=== PATIENT | male | born 1995 | race Caucasian/White ===

== ENCOUNTER 2019-12-07 14:53 | Emergency (ER) | payer BC ==
[2019-12-07] MEDS ORDERED: ASPIRIN 81 MG TABLET, CHEWABLE PO ONE (15:06)
--- NOTE | 2019-12-07 15:06 | ER Document Report ---
ED Medical Screen (RME) - General Chief Complaint: Chest Pain Stated Complaint: CHEST PAIN Time Seen by Provider: 12/07/19 15:01 Mode of Arrival: Wheelchair Information source: Patient Notes: 24-year-old male presented to ED for complaint of chest pain while at work. He states he has not had any fevers. He was at work when the chest pain started suddenly. He states he has not been around anybody that has the coronavirus. States he has not had any fevers. He states he has not had any runny nose cough or congestion. He states he has pain right in the center of his chest like a pressure. He states he has a history of Crohn's disease. He states he is also very dizzy and feels like he is got a pass out. I have greeted and performed a rapid initial assessment of this patient. A comprehensive ED assessment and evaluation of the patient, analysis of test results and completion of medical decision making process will be conducted by an additional ED providers.
--- NOTE | 2019-12-07 15:42 | RADIOLOGY REPORT (SQ) ---
EXAM DESCRIPTION: CHEST 2 VIEWS COMPLETED DATE/TIME: 12/07/2019 3:26 pm REASON FOR STUDY: chest pain COMPARISON: None. EXAM PARAMETERS: NUMBER OF VIEWS: two views TECHNIQUE: Digital Frontal and Lateral radiographic views of the chest acquired. RADIATION DOSE: NA LIMITATIONS: none FINDINGS: LUNGS AND PLEURA: No opacities, masses or pneumothorax. No pleural effusion. MEDIASTINUM AND HILAR STRUCTURES: No masses or contour abnormalities. HEART AND VASCULAR STRUCTURES: Heart normal size. No evidence for failure. BONES: No acute findings. HARDWARE: None in the chest. OTHER: No other significant finding. IMPRESSION: NO ACUTE RADIOGRAPHIC FINDING IN THE CHEST. TECHNICAL DOCUMENTATION: JOB ID: [id number] 2010 [employer]- All Rights Reserved Reading location - IP/workstation name: [email or web address]
[2019-12-07 15:44] LABS: HEMOGLOBIN 16.5 g/dL (13.5-17.0); RED BLOOD COUNT 5.59 10^6/uL (4.35-5.55); WHITE BLOOD COUNT 11.9 10^3/uL (4.0-10.5)
[2019-12-07 15:45] LABS: ABSOLUTE BASOPHILS # (AUTO) 0.1 10^3/uL (0.0-0.2); ABSOLUTE EOSINOPHILS # (AUTO) 0.1 10^3/uL (0.0-0.6); ABSOLUTE LYMPHOCYTES (AUTO) 2.4 10^3/uL (0.5-4.7); ABSOLUTE MONOCYTES (AUTO) 0.9 10^3/uL (0.1-1.4); ABSOLUTE NEUT (AUTO) 8.5 10^3/uL (1.7-8.2); BASOPHILS % (AUTO) 0.7 % (0-2); EOSINOPHILS % (AUTO) 0.6 % (0-6); LYMPHOCYTES % (AUTO) 20.4 % (13-45); MEAN CORPUSCULAR HEMOGLOBIN 29.5 pg (27.0-33.4); MEAN CORPUSCULAR HGB CONC 34.4 g/dL (32.0-36.0); MEAN CORPUSCULAR VOLUME 86 fl (80-97); MONOCYTES % (AUTO) 7.3 % (3-13); PLATELET COUNT 291 10^3/uL (150-450); TOTAL CELLS COUNTED % (AUTO) 100 %
--- NOTE | 2019-12-07 15:52 | EKG REPORT ---
SEVERITY:- ABNORMAL ECG - SINUS RHYTHM PROBABLE LEFT VENTRICULAR HYPERTROPHY INFERIOR Q WAVES, PROBABLY NORMAL VARIATION : Confirmed by: Tiffanie Cruz MD 07-Dec-2019 15:52:03
[2019-12-07 16:03] LABS: ALBUMIN 4.7 g/dL (3.5-5.0); ALKALINE PHOSPHATASE 69 U/L (38-126); ANION GAP 8 (5-19); ASPARTATE AMINO TRANSFERASE 54 U/L (17-59); BILIRUBIN,TOTAL 0.6 mg/dL (0.2-1.3); BLOOD UREA NITROGEN 20 mg/dL (7-20); CALCIUM 10.2 mg/dL (8.4-10.2); CARBON DIOXIDE 28 mmol/L (22-30); CHLORIDE 103 mmol/L (98-107); GLUCOSE 118 mg/dL (75-110); POTASSIUM 3.9 mmol/L (3.6-5.0); TOTAL PROTEIN 8.1 g/dL (6.3-8.2)
--- NOTE | 2019-12-07 16:40 | ER Document Report ---
ED General - General Chief Complaint: Chest Pain Stated Complaint: CHEST PAIN Time Seen by Provider: 12/07/19 15:01 Primary Care Provider: [facility] [Primary [facility] Provider] - Follow up as needed Mode of Arrival: Wheelchair Information source: Patient TRAVEL OUTSIDE OF THE [place] IN LAST 30 DAYS: No - HPI Onset: Other - suddenly today Onset/Duration: Gradual Quality of pain: Pressure Severity: Moderate Pain Level: 2 Associated symptoms: Chest pain, Shortness of breath, Other - Diaphoresis Exacerbated by: Denies Relieved by: Denies Similar symptoms previously: No Recently seen / treated by doctor: No Notes: 24 year old male with a history of Crohns Disease on Remicade here for two episodes of chest pains. The patient was at work and he noticed chest pain, dizziness, and sweating. The patient says this lasted about 20 min and then he came to the ER. The same symptoms happened again while in the ER but they lasted a much shorter amount of time. Prior to today, the patient has never had symptoms like this before. The patient denies being under stress, recent chest trauma, recent heavy lifting, radiation of chest pain, nausea, vomiting, sick contacts, recent long plane or car rides, family history of CAD or PE/DVT. - Related Data Allergies/Adverse Reactions: No Known Allergies Allergy (Verified 12/07/19 15:39) Past Medical History - General Information source: Patient - Social History Smoking Status: Current Some Day Smoker Frequency of alcohol use: Social Drug Abuse: None Lives with: Spouse/Significant other Family History: Reviewed & Not Pertinent Patient has suicidal ideation: No Patient has homicidal ideation: No Past Surgical History: Reports: Hx Tonsillectomy Review of Systems - Review of Systems Constitutional: Diaphoresis EENT: No symptoms reported Cardiovascular: Chest pain, Dizziness Respiratory: Short of breath Gastrointestinal: No symptoms reported Genitourinary: No symptoms reported Male Genitourinary: No symptoms reported Musculoskeletal: No symptoms reported Skin: No symptoms reported Hematologic/Lymphatic: No symptoms reported Neurological/Psychological: No symptoms reported -: Yes All other systems reviewed and negative Physical Exam - Vital signs Vitals: Temp Pulse Resp BP Pulse Ox 98.6 F 61 18 141/74 H 100 12/07/19 15:28 12/07/19 15:28 12/07/19 15:28 12/07/19 15:28 12/07/19 15:28 - Notes Notes: GENERAL: Well-appearing, well-nourished and in no acute distress. HEAD: Atraumatic, normocephalic. EYES: Pupils equal round and reactive to light, extraocular movements intact, sclera anicteric, conjunctiva are normal. ENT: Nares patent, oropharynx clear without exudates. Moist mucous membranes. NECK: Normal range of motion, supple without lymphadenopathy or JVD. LUNGS: Breath sounds clear to auscultation bilaterally and equal. No wheezes rales or rhonchi. HEART: Regular rate and rhythm without murmurs, rubs or gallops. ABDOMEN: Soft, nontender, normoactive bowel sounds. No guarding, no rebound. No masses appreciated. EXTREMITIES: Normal range of motion, no pitting or edema. No clubbing or cyanosis. NEUROLOGICAL: Cranial nerves II through XII grossly intact. Normal speech, normal gait. PSYCH: Normal mood, normal affect. SKIN: Warm, Dry, normal turgor, no rashes or lesions noted. Course - Re-evaluation Re-evalutation: 12/07/19 17:15 The patient is here for 2 episodes of chest pains along with diaphoresis and shortness of breath and a sensation he may pass out. The patient khas no risk factors for PE or ACS other then that he vapes (unclear risk factor). The patient is PERC Negative making PE unlikely. The patient has an unremarkable chest xray and EKG. Plan to get 2 negative Trops since the patient's chest pain started about an hour prior to ER arrival. Assuming both Trops are completely negative, patient is safe for outpatient follow up. The patient has no known sick contacts. He was told to see his PCP for COVID19 testing if symptoms developed. - Vital Signs Vital signs: Temp Pulse Resp BP Pulse Ox 98.6 F 61 13 127/72 H 97 12/07/19 15:28 12/07/19 15:28 12/07/19 17:59 12/07/19 17:59 12/07/19 17:59 - Laboratory Result Diagrams: 12/07/19 15:29 12/07/19 15:29 Laboratory results interpreted by me: 12/07/19 12/07/19 15:29 15:29 WBC 11.9 H RBC 5.59 H Absolute Neuts (auto) 8.5 H Glucose 118 H ALT 70 H - Diagnostic Test Radiology reviewed: Image reviewed, Reports reviewed - EKG Interpretation by Me EKG shows normal: Sinus rhythm, Freedom, Intervals, QRS Complexes, ST-T Waves Rate: Normal Rhythm: NSR Discharge - Discharge Clinical Impression: Diaphoresis Chest pain Qualifiers: Chest pain type: unspecified Qualified Code(s): R07.9 - Chest pain, unspecified Condition: Stable Disposition: HOME, SELF-CARE Additional Instructions: Use Tylenol and Motrin for chest pains. Drink plenty of fluids in the days to come. Return to an ER for persistent chest pain, chest pain with trouble breathing, or if worse. Tell your doctor you were in the ER for chest pains and dizziness. Consider an outpatient front desk monitor if dizziness spells continue. You had an EKG, Chest Xray, and blood work all that was within normal limits. Seek medical attention if you develop fevers, chills, sweats, trouble breathing or if you are worse in anyway. Referrals: [facility] [Primary Care Provider] - Follow up as needed
[2019-12-07 18:03] VITALS: BP 127/72
== END 2019-12-07 19:39 | disposition home or self-care (01) ==
LOC: ER 14:53
DX: R07.9 Chest pain, unspecified (principal); R61 Generalized hyperhidrosis; K50.90 Crohn's disease, unspecified, without complications; R42 Dizziness and giddiness; R06.02 Shortness of breath; F17.290 Nicotine dependence, other tobacco product, uncomplicated; Z79.899 Other long term (current) drug therapy
CPT/HCPCS: 36415; 71046; 80053; 84484; 85025; 93005; 93010; 99285